=== PATIENT | female | born 1970 | race Two or more races ===

== ENCOUNTER 2024-06-01 20:28 | Inpatient (IN) | payer OTHER ==
[~2024-06-01] VITALS: Ht 160 cm; Wt 61.8 kg
--- NOTE | 2024-06-01 20:42 | ED.PDOC ---
HPI Comments 53-year-old female who came to ER via EMS for chest pains. Patient states she was shopping earlier when she started experiencing chest pains, substernal, sharp, nonradiating, intermittent. Associated with shortness of breath. Denies any history of chest pains. Patient was given aspirin and nitroglycerin chest pains. Patient states she feels better at this time of care. 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 Allergies: Coded Allergies: NO KNOWN ALLERGIES (Unverified , 06/01/24) Information Source: Patient Mode of Arrival: EMS Severity: Moderate Timing: Minutes Duration: Minutes Prehospital treatment: ASA, NTG Location: Substernal Radiation: No Radiation Quality: Sharp Onset: With Light Exertion Cardiac Risk Factors: None PE Risk Factors: None History of: None Associated Signs and Symptoms: SOB Past Medical History PAST MEDICAL HISTORY: Thyroid Surgical History: Appendectomy, [employer] History: Denies all [employer] Hx Family History Family History: Reviewed,noncontributory to illness Social History Smoker: Non-Smoker Alcohol: Denies ETOH Use Drugs: Denies Drug Use Lives In: Home Constitutional: denies: chills, diaphoresis, fatigue, fever, malaise, sweats, weakness, others EENTM: denies: blurred vision, double vision, ear bleeding, ear discharge, ear drainage, ear pain, ear ringing, eye pain, eye redness, hearing loss, mouth pain, mouth swelling, nasal discharge, nose bleeding, nose congestion, nose pain, photophobia, tearing, throat pain, throat swelling, voice changes, others Respiratory: reports: SOB at rest, shortness of breath; denies: cough, hemoptysis, orthopnea, SOB with excertion, stridor, wheezing, others Cardiovascular: reports: chest pain; denies: dizzy spells, diaphoresis, Dyspnea on exertion, edema, irregular heart beat, left arm pain, lightheadedness, palpitations, PND, syncope, others Gastrointestinal: denies: abdomen distended, abdominal pain, blood streaked bowels, constipated, diarrhea, dysphagia, difficulty swallowing, hematemesis, melena, nausea, poor appetite, poor fluid intake, rectal bleeding, rectal pain, vomiting, others Genitourinary: denies: abnormal vagina bleeding, burning, dyspareunia, dysuria, flank pain, frequency, hematuria, incontinence, pain, , vagina discharge, urgency, others Neurological: denies: dizziness, fainting, headache, left sided numbness, left sided weakness, numbness, paresthesia, pre-existing deficit, right sided numbness, right sided weakness, seizure, speech problems, tingling, tremors, weakness, others Musculoskeletal: denies: back pain, gout, joint pain, joint swelling, muscle pain, muscle stiffness, neck pain, others Integumetry: denies: bruises, change in color, change in hair/nails, dryness, laceration, lesions, lumps, rash, wounds, others Allergic/Immunocompromised: denies: Difficulty Healing, Frequent Infections, Hives, Itching, others Hematologic/Lymphatic: denies: anemia, blood clots, easy bleeding, easy bruising, swollen glands, others Endocrine: denies: excessive hunger, excessive sweating, excessive thirst, excessive urination, flushing, intolerance to cold, intolerance to heat, unexplained weight gain, unexplained weight loss, others Psychiatric: denies: anxiety, bipolar disorder, depression, hopeless, panic disorder, schizophrenia, sleepless, suicidal, others Physical Exam General Appearance: No Apparent Distress, Normal HEENT: Normal ENT Inspection, Pharynx Normal, TMs Normal Neck: Full Range of Motion, Non-Tender, Normal, Normal Inspection Respiratory: Chest Non-Tender, Lungs Clear, No Accessory Muscle Use, No Respiratory Distress, Normal Breath Sounds Cardiovascular: No Edema, No JVD, No Murmur, No Gallop, Normal Peripheral Pulses, Regular Rate/Rhythm Breast Exam: Deferred Gastrointestinal: No Organomegaly, Non Tender, No Pulsatile Mass, Normal Bowel Sounds, Soft Genitalia: Deferred Pelvic: Deferred Rectal: Deferred Extremities: No calf tenderness, Normal capillary refill, Normal inspection, Normal range of motion, Non-tender, No pedal edema Musculoskeletal : Apperance: Normal Neurologic: Alert, dryer feeder II-XII nml as Tested, No Motor Deficits, Normal Affect, Normal Mood, No Sensory Deficits Cerebellar Function: Normal Reflexes: Normal Skin: Dry, Normal Color, Warm Lymphatic: No Adenopathy Was a procedure done? Was a procedure done?: No CP Differential Dx Differential Diagnosis: Angina, Anxiety / Panic Attack Differential Diagnosis: Angina, Chest Wall Pain, Costochondritis, Esophageal reflux/spasm, Gastritis, Myocardial Infarction, Pneumonia X-Ray, Labs, Meds, VS Vital Signs Date Time Temp Pulse Resp B/P (MAP) Pulse Ox O2 Delivery O2 Flow Rate FiO2 06/01/24 20:36 98.0 87 16 112/86 (95) 97 06/01/24 20:31 82 Lab Test 06/01/24 21:29 06/01/24 20:42 Range/Units Troponin I High Sensitivity Pending < 3 L </=34 ng/L White Blood Count 7.6 4.4-10.8 10^3/uL Red Blood Count 4.32 4.0-5.20 10^6/uL Hemoglobin 13.4 12.2-16.2 g/dL Hematocrit 39.6 36.0-46.0 % Mean Corpuscular Volume 91.8 80.0-100.0 fL Mean Corpuscular Hemoglobin 31.0 28.0-32.0 pg Mean Corpuscular Hemoglobin Concent 33.7 32.0-36.0 g/dL Red Cell Distribution Width 14.3 11.8-14.3 % Platelet Count 225 140-450 10^3/uL Mean Platelet Volume 9.1 6.9-10.8 fL Neutrophils (%) (Auto) 51.8 37.0-80.0 % Lymphocytes (%) (Auto) 37.6 10.0-50.0 % Monocytes (%) (Auto) 7.1 0.0-12.0 % Eosinophils (%) (Auto) 2.7 0.0-7.0 % Basophils (%) (Auto) 0.8 0.0-2.0 % Neutrophils # (Auto) 3.9 1.6-8.6 10 ^3/uL Lymphocytes # (Auto) 2.8 0.4-5.4 10 ^3/uL Monocytes # (Auto) 0.5 0-1.3 10 ^3/uL Eosinophils # (Auto) 0.2 0-0.8 10 ^3/uL Basophils # (Auto) 0.1 0-0.2 10 ^3/uL Nucleated Red Blood Cells 0.1 % Sodium Level 144 136-145 mmol/L Potassium Level 3.9 3.5-5.1 mmol/L Chloride Level 108 H 98-107 mmol/L Carbon Dioxide Level 25 20-31 mmol/L Anion Gap 11 5-15 Blood Urea Nitrogen 18 9-23 mg/dL Creatinine 0.80 0.550-1.02 mg/dL Glomerular Filtration Rate Calc 89 >90 mL/min BUN/Creatinine Ratio 22.5 H 10.0-20.0 Serum Glucose 116 H 74-106 mg/dL Calcium Level 10.2 8.7-10.4 mg/dL Time of 1ST Reevaluation: 20:39 Reevaluation 1ST: Unchanged Patient Education/Counseling: Diagnosis, Treatment Family Education/Counseling: No Family Present Departure 1 Departure Time of Disposition: 21:59 (Patient presented with chest pain that was concerning for possible STEMI, ACS, PE, Pneumonia, Muscle Strain, COPD, Dissection. Data: 1. I ordered and reviewed the result of at least 3 labs including a CBC, BMP, and Troponin. 2. I independently interpreted the following tests: EKG which shows sinus rhythm and Chest X-ray which shows benign chest.Risk:This patient has a high risk of morbidity due to further diagnostic testing or treatment and may suffer from an acute cardiac or respiratory disorder. Workup reveals concern for ACS and patient should be admitted for further workup and possible expert consultation. ) Impression: Primary Impression: Acute chest pain Disposition: 09 ADMITTED INPATIENT Admit to: Med Surg Condition: Serious Critical Care Note Critical Care Time?: Yes Critical care comment: Acute chest pain Authorized and Performed by: Lottie Mcclelland MD Total critical care time: Approximately 34 minutes Due to a high probability of clinically significant, life threatening deterioration, the patient required my highest level of preparedness to intervene emergently and I personally spent this critical care time directly and personally managing the patient. This critical care time included obtaining a history; examining the patient; pulse oximetry; ordering and review of studies; arranging urgent treatment with development of a management plan; evaluation of patient's response to treatment; frequent reassessment; and, discussions with other providers. This critical care time was performed to assess and manage the high probability of imminent, life-threatening deterioration that could result in multi-organ failure. It was exclusive of separately billable procedures and treating other patients and teaching time. Please see my other sections and the rest of the note for further information on patient assessment and treatment. Stability Stability form required: No Heart Score Heart Score: Heart Score Response (Comments) Value History N/A 0 EKG N/A 0 Age N/A 0 Risk Factors N/A 0 Troponin N/A 0 Total 0 I personally scribed for LOTTIE MCCLELLAND MD ([email or web address]) on 06/01/24 at 20:42. Electronically submitted by Freddie Carroll ([email or web address]). LOTTIE MCCLELLAND MD Jun 01, 2024 20:42
[2024-06-01 21:05] LABS: Basophils # (auto) 0.1 10 ^3/uL (0-0.2); Basophils % (auto) 0.8 % (0.0-2.0); Eosinophils # (auto) 0.2 10 ^3/uL (0-0.8); Eosinophils % (auto) 2.7 % (0.0-7.0); Hematocrit 39.6 % (36.0-46.0); Hemoglobin 13.4 g/dL (12.2-16.2); Lymphocytes # (auto) 2.8 10 ^3/uL (0.4-5.4); Lymphocytes % (auto) 37.6 % (10.0-50.0); Mean Corpuscular Hgb Conc. 33.7 g/dL (32.0-36.0); Mean Corpuscular Volume 91.8 fL (80.0-100.0); Monocytes # (auto) 0.5 10 ^3/uL (0-1.3); Monocytes % (auto) 7.1 % (0.0-12.0); Neutrophils # (auto) 3.9 10 ^3/uL (1.6-8.6); Neutrophils % (auto) 51.8 % (37.0-80.0); Nucleated Red Blood Cells % 0.1 %; Platelet Count (auto) 225 10^3/uL (140-450); Red Blood Cells 4.32 10^6/uL (4.0-5.20); Red Cell Distribution Width 14.3 % (11.8-14.3); White Blood Cell 7.6 10^3/uL (4.4-10.8)
[2024-06-01 21:11] LABS: Chloride 108 mmol/L (98-107); Potassium 3.9 mmol/L (3.5-5.1); Sodium 144 mmol/L (136-145)
[2024-06-01 21:12] LABS: Anion Gap 11 (5-15); Calcium 10.2 mg/dL (8.7-10.4); Carbon Dioxide 25 mmol/L (20-31)
[2024-06-01 21:17] LABS: BUN/Creatinine Ratio 22.5 (10.0-20.0); Blood Urea Nitrogen 18 mg/dL (9-23); Glucose 116 mg/dL (74-106)
--- NOTE | 2024-06-01 21:20 | DVH ---
XY CHEST TWO VIEWS ROUTINE CLINICAL HISTORY: chest pain COMPARISON: None TECHNIQUE: Frontal and lateral view of the chest was obtained FINDINGS: Lines and Tubes: None Lungs: No focal consolidation. Pleura: No effusion. No pneumothorax. Cardiomediastinal contours: Unremarkable Bones: No acute osseous abnormality. IMPRESSION: No acute cardiopulmonary disease.
[2024-06-01 22:14] LABS: Urine Bacteria None Seen /hpf (None Seen)
[2024-06-01] MEDS ORDERED: MORPHINE SULFATE INJ 2 MG/ml SYRG IV PRN ×2 (22:30→23:00)
[2024-06-01] MEDS ORDERED: ACETAMINOPHEN 325 MG TAB PO PRN (22:30)
[2024-06-01] MEDS ORDERED: HYDROcodone-ACET 5/325MG TAB PO PRN (22:30)
[2024-06-01] MEDS ORDERED: DOCUSATE SOD 100 MG CAP PO PRN (22:30)
--- NOTE | 2024-06-01 22:50 | DVHHP2 ---
History of Present Illness Reason for Visit: Acute chest pain History of Present Illness Patient is a 53-year-old female with past medical history of thyroid disease who presented to [facility] ED with complaint of chest pain. Patient reports she was shopping earlier when she started experiencing chest pains, substernal, sharp in nature, intermittent, nonradiating, associated shortness of breaths, SOB at rest, getting worse that prompted this visit. Patient was seen and evaluated in the ED, laboratory data shows WBC 7.6, platelets 225, sodium 144, potassium 3.9, BUN 18, creatinine 0.80, glucose 116, troponin 3, calcium 10.2, blood pressure 112/86, heart rate 72, temperature 98.0 F, O2 saturation 97% on room air. Chest x-ray showed no acute cardiopulmonary disease. Patient was given aspirin and nitroglycerin, please see medication orders section in the computer. On my assessment, patient denies chest pain at this moment, no headache, no dizziness, no diaphoresis, no shortness of breath, no nausea, no vomiting, no fever, no chills. Patient was admitted for further evaluation and medical management. Past Medical History Thyroid disease Past Surgical History Appendectomy, Family History Reviewed, noncontributory to the management of this case. Past Social History The patient lives at home, denies smoking, alcohol or illicit drugs abuse. Review of Systems Constitutional: No: Fever, Chills, Sweats, Weakness, Malaise, Other Eyes: No: Pain, Vision change, Conjunctivae inflammation, Eyelid inflammation, Other, Redness ENT: No: Ear pain, Ear discharge, Nose pain, Nose discharge, Nose congestion, Mouth pain, Mouth swelling, Throat pain, Throat swelling, Other Respiratory: Shortness of breath, Other (SOB at rest); No: Cough, Dry, SOB with excertion, Wheezing, Hemoptysis, Pleuritic Pain, Sputum, Wheezing Cardiovascular: Chest Pain; No: Palpitations, Orthopnea, Paroxysmal Noc. Dyspnea, Edema, Lt Headedness, Other Gastrointestinal: No: Nausea, Vomiting, Abdominal Pain, Diarrhea, Constipation, Melena, Hematochezia, Other Genitourinary: No Dysuria, No Frequency, No Incontinence, No Hematuria, No Retention, No Other Musculoskeletal: No: other, neck pain, shoulder pain, arm pain, back pain, hand pain, leg pain, foot pain Skin: No: Rash, Lesions, Jaundice, Bruising, Other Neurological: No: Weakness, Numbness, Incoordination, Change in speech, C onfusion, Seizures, Other Allergies: Coded Allergies: NO KNOWN ALLERGIES (Unverified , 06/01/24) Medications Current Medications Medications Dose Ordered Sig/Madelaine Route Start Time Stop Time Status Last Admin Dose Admin Sodium Chloride 10 ml Q8HR IV 06/02/24 06:00 Acetaminophen/ Hydrocodone Bitart 1 tab Q4HP PRN PO 06/01/24 22:30 Ondansetron HCl 4 mg Q4HP PRN IV 06/01/24 22:30 Docusate Sodium 100 mg BIDPRN PRN PO 06/01/24 22:30 Acetaminophen 650 mg Q6HP PRN PO 06/01/24 22:30 Morphine Sulfate 2 mg Q4HPRN PRN IV 06/01/24 22:30 Aspirin 81 mg DAILY PO 06/02/24 10:00 Atorvastatin Calcium 10 mg HS PO 06/02/24 22:00 Exam Vital Signs Vital Signs Date Time Temp Pulse Resp B/P (MAP) Pulse Ox O2 Delivery O2 Flow Rate FiO2 06/01/24 21:34 71 06/01/24 20:36 98.0 16 112/86 (95) 97 General Appearance: Alert, Oriented X3, Cooperative, No acute distress HEENT: Atraumatic, PERRLA, EOMI, Mucous membr. moist/pink Respiratory: Clear to auscultation, Normal air movement Cardiovascular: Regular rate, Normal S1, Normal S2, No murmurs Abdominal: Normal bowel sounds, Soft, No tenderness, No hepatospenomegaly, No masses Extremities: No clubbing, No cyanosis, No edema, Normal pulses, No tenderness/swelling Skin: No rashes, No breakdown, No significant lesion Neuro: Normal gait, Normal speech, Strength at 5/5 X4 ext, Normal tone, Sensation intact, Cranial nerves 3-12 NL, Reflexes 2+ Psych/Mental Status: Mental status NL, Mood NL Labs/Xrays Labs Test 06/01/24 21:29 06/01/24 20:42 06/01/24 20:40 Range/Units Troponin I High Sensitivity < 3 L </=34 ng/L White Blood Count 7.6 4.4-10.8 10^3/uL Red Blood Count 4.32 4.0-5.20 10^6/uL Hemoglobin 13.4 12.2-16.2 g/dL Hematocrit 39.6 36.0-46.0 % Mean Corpuscular Volume 91.8 80.0-100.0 fL Mean Corpuscular Hemoglobin 31.0 28.0-32.0 pg Mean Corpuscular Hemoglobin Concent 33.7 32.0-36.0 g/dL Red Cell Distribution Width 14.3 11.8-14.3 % Platelet Count 225 140-450 10^3/uL Mean Platelet Volume 9.1 6.9-10.8 fL Neutrophils (%) (Auto) 51.8 37.0-80.0 % Lymphocytes (%) (Auto) 37.6 10.0-50.0 % Monocytes (%) (Auto) 7.1 0.0-12.0 % Eosinophils (%) (Auto) 2.7 0.0-7.0 % Basophils (%) (Auto) 0.8 0.0-2.0 % Neutrophils # (Auto) 3.9 1.6-8.6 10 ^3/uL Lymphocytes # (Auto) 2.8 0.4-5.4 10 ^3/uL Monocytes # (Auto) 0.5 0-1.3 10 ^3/uL Eosinophils # (Auto) 0.2 0-0.8 10 ^3/uL Basophils # (Auto) 0.1 0-0.2 10 ^3/uL Nucleated Red Blood Cells 0.1 % Sodium Level 144 136-145 mmol/L Potassium Level 3.9 3.5-5.1 mmol/L Chloride Level 108 H 98-107 mmol/L Carbon Dioxide Level 25 20-31 mmol/L Anion Gap 11 5-15 Blood Urea Nitrogen 18 9-23 mg/dL Creatinine 0.80 0.550-1.02 mg/dL Glomerular Filtration Rate Calc 89 >90 mL/min BUN/Creatinine Ratio 22.5 H 10.0-20.0 Serum Glucose 116 H 74-106 mg/dL Calcium Level 10.2 8.7-10.4 mg/dL PATIENT: ELMA BURTON ACCT: [id number] UNIT: [id number] : 1970 LOC: ER ROOM / BED: / AGE / SEX: 53 / F ADM STATUS: REG ER SERVICE 33 ORDERING PHYSICIAN: LOTTIE CASTANON MD PROCEDURE(s): CXR2 - CHEST TWO VIEWS ROUTINE REASON: chest pain ORDER NUMBER(s): [id number], ACCESSION NUMBER(s): [id number] XY CHEST TWO VIEWS ROUTINE CLINICAL HISTORY: chest pain COMPARISON: None TECHNIQUE: Frontal and lateral view of the chest was obtained FINDINGS: Lines and Tubes: None Lungs: No focal consolidation. Pleura: No effusion. No pneumothorax. Cardiomediastinal contours: Unremarkable Bones: No acute osseous abnormality. IMPRESSION: No acute cardiopulmonary disease. Assessment/Plan Assessment/Plan Acute chest pain Plan 1. Admit to telemetry unit 2. Breathing treatment 3. Pain control management 4. Management of fluids and electrolytes 5. Consultation for hospitalist 6. Diagnostic tests-chest x-ray 7. DVT prophylaxis-on aspirin 8. Repeat labs CBC, CMP in a.m. 9. Continue with current medical management 10. Treatment plan discussed with patient and RN. Patient verbalized understanding. Plan discussed with: Patient, Other (RN) My Orders Orders - ALAN DORADO DNP Procedure Category Date Status Time Allergies TONIO 06/01/24 In Process 22:26 Code Status CODE 06/01/24 Transmitted 22:26 Sodium Chloride Lock PHA 06/02/24 In Process (Saline Lock Ns) 06:00 Oxygen Per Hour RT 06/01/24 Transmitted 22:26 Hydrocodone-Acet PHA 06/01/24 In Process 5/325mg Tab ([place] 22:30 Ondansetron Hcl PHA 06/01/24 In Process (Zofran) 22:30 Docusate Sodium PHA 06/01/24 In Process Capsule (Colace 22:30 Complete Blood Count LAB 06/02/24 Verified 04:00 Comprehensive LAB 06/02/24 Verified Metabolic Panel 04:00 Cardiac DIET 06/02/24 Transmitted Diet-2gna,Lofat,Lochol Breakfast Condition: Serious TONIO 06/01/24 In Process 22:26 Acetaminophen Tablet PHA 06/01/24 In Process (Tylenol Tablet) 22:30 Bedrest With Bathroom TONIO 06/01/24 In Process Privileg 22:26 Morphine Sulfate PHA 06/01/24 In Process Injection 22:30 Sequential TONIO 06/01/24 In Process Compression Device Aspirin Tablet PHA 11/2/24 In Process 10:00 Atorvastatin (Lipitor) [facility] 06/02/24 In Process 22:00 Admit ADMIT 06/01/24 Transmitted 22:49 Nitroglycerin [facility] 06/01/24 Transmitted Sublingual (Ntrostat 23:00 Morphine Sulfate [facility] 06/01/24 Transmitted Injection 23:00 Notify Of Changes [facility] 06/01/24 Transmitted From Base 22:49 Rail Transportation Tabeler For [facility] 06/01/24 Transmitted 24 Hours 22:49 Emergency Dysrhythmia [facility] 06/01/24 Transmitted Protocol 22:49 Rhythm Strips Once [facility] 06/01/24 Transmitted Every Shift 22:49 Oxygen By Nasal RT 06/01/24 Transmitted Cannula 22:49 Problem List: (1) Acute chest pain Date of Service: Jun 01, 2024 Billing Provider: ALAN DORADO DNP Common Visit Codes: [id number] INP/OBS CARE (HIGH) ALAN DORADO DNP Jun 01, 2024 22:50
[2024-06-01 22:54] LABS: Urine Blood Negative /uL (Negative); Urine Clarity Clear (Clear); Urine Color Yellow (Yellow); Urine Mucus FEW (None Seen); Urine Protein, UAD TRACE (Negative); Urine Specific Gravity 1.025 (1.001-1.035); Urine Urobilinogen Normal (Negative); Urine WBC 2 /hpf (0 - 5)
[2024-06-01] MEDS ORDERED: NITROGLYCERIN 0.4 MG SL TAB SL PRN (23:00)
[2024-06-01] MEDS: ONDANSETRON HCL 4 MG/2 ML VIAL IV PRN (23:03)
[2024-06-02] VITALS (8 sets, daily range): BP systolic 104–121; BP diastolic 55–70; PULSE 62–78; RESP 14–20; TEMP 97.6–98.6; O2SAT 93–100
--- NOTE | 2024-06-02 01:34 | ECG ---
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
[2024-06-02] MEDS ORDERED: QUET200T4 PO (02:05)
[2024-06-02] MEDS ORDERED: SERT100T PO (02:06)
[2024-06-02] MEDS ORDERED: ATOR1POW PO (03:20)
[2024-06-02] MEDS ORDERED: ATOR10TA52 PO (03:24)
[2024-06-02] MEDS ORDERED: LEVO88TA4 PO (03:25)
[2024-06-02] MEDS: SODIUM CHLOR 0.9% PF (SALINE LOCK) 10ML VIAL/SYR IV SCH (04:43)
[2024-06-02 05:38] LABS: Basophils # (auto) 0.1 10 ^3/uL (0-0.2); Basophils % (auto) 1.2 % (0.0-2.0); Eosinophils # (auto) 0.3 10 ^3/uL (0-0.8); Eosinophils % (auto) 3.9 % (0.0-7.0); Hematocrit 41.3 % (36.0-46.0); Hemoglobin 13.8 g/dL (12.2-16.2); Lymphocytes # (auto) 1.9 10 ^3/uL (0.4-5.4); Lymphocytes % (auto) 22.4 % (10.0-50.0); Mean Corpuscular Hemoglobin 31.5 pg (28.0-32.0); Mean Corpuscular Hgb Conc. 33.5 g/dL (32.0-36.0); Monocytes # (auto) 0.6 10 ^3/uL (0-1.3); Monocytes % (auto) 6.8 % (0.0-12.0); Neutrophils # (auto) 5.6 10 ^3/uL (1.6-8.6); Neutrophils % (auto) 65.7 % (37.0-80.0); Nucleated Red Blood Cells % 0.6 %; Platelet Count (auto) 245 10^3/uL (140-450); Red Blood Cells 4.39 10^6/uL (4.0-5.20); Red Cell Distribution Width 14.5 % (11.8-14.3); White Blood Cell 8.5 10^3/uL (4.4-10.8)
--- NOTE | 2024-06-02 07:09 | ECG ---
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
[2024-06-02 08:22] LABS: Alanine Aminotransferase 12 U/L (7-40); Albumin 4.3 g/dL (3.2-4.8); Alkaline Phosphatase 80 U/L (46-116); Anion Gap 7 (5-15); Aspartate Aminotransferase 11 U/L (13-40); Bilirubin, Total 0.4 mg/dL (0.2-1.0); Blood Urea Nitrogen 15 mg/dL (9-23); Calcium 9.6 mg/dL (8.7-10.4); Carbon Dioxide 26 mmol/L (20-31); Chloride 109 mmol/L (98-107); Glucose 102 mg/dL (74-106); Sodium 142 mmol/L (136-145)
[2024-06-02 08:23] LABS: Total Protein 6.9 g/dL (5.7-8.2)
[2024-06-02] MEDS: ASPirin 81 mg TAB PO SCH (10:07)
--- NOTE | 2024-06-02 12:01 | DVHPN2 ---
Reviewed: Care Plan, H&P, Labs Changes from previous H/P or p: No Changes General: Per HPI Eyes: No Pain, No Vision change, No Conjunctivae inflammation, No Eyelid inflammation, No Other, No Redness ENT: No Ear pain, No Ear discharge, No Nose pain, No Nose discharge, No Nose congestion, No Mouth pain, No Mouth swelling, No Throat pain, No Throat swelling, No Other Cardiovascular: Chest Pain; No Palpitations, No Orthopnea, No Paroxysmal Noc. Dyspnea, No Edema, No Lt Headedness, No Other Respiratory: No Cough, No Dry; Shortness of breath; No SOB with excertion, No Wheezing, No Hemoptysis, No Pleuritic Pain, No Sputum; Other (SOB at rest) Gastrointestinal: No Nausea, No Vomiting, No Abdominal Pain, No Diarrhea, No Constipation, No Melena, No Hematochezia, No Other Genitourinary: No Dysuria, No Frequency, No Incontinence, No Hematuria, No Retention, No Other Musculoskeletal: No other, No neck pain, No shoulder pain, No arm pain, No back pain, No hand pain, No leg pain, No foot pain Skin: No Rash, No Lesions, No Jaundice, No Bruising, No Other Objective Vitals Vital Signs Date Time Temp Pulse Resp B/P (MAP) Pulse Ox O2 Delivery O2 Flow Rate FiO2 06/02/24 08:30 98.3 71 17 115/59 (77) 99 98.3 06/02/24 08:00 Room Air* 0 21 Medications Current Medications Medications Dose Ordered Sig/Madelaine Route Start Time Stop Time Status Last Admin Dose Admin Sodium Chloride 10 ml Q8HR IV 06/02/24 06:00 06/02/24 04:43 10 ML Acetaminophen/ Hydrocodone Bitart 1 tab Q4HP PRN PO 06/01/24 22:30 Ondansetron HCl 4 mg Q4HP PRN IV 06/01/24 22:30 06/01/24 23:03 4 MG Docusate Sodium 100 mg BIDPRN PRN PO 06/01/24 22:30 Acetaminophen 650 mg Q6HP PRN PO 06/01/24 22:30 Morphine Sulfate 2 mg Q4HPRN PRN IV 06/01/24 22:30 Aspirin 81 mg DAILY PO 06/02/24 10:00 06/02/24 10:07 81 MG Atorvastatin Calcium 10 mg HS PO 06/02/24 22:00 Nitroglycerin 0.4 mg Q5MINP PRN SL 06/01/24 23:00 Morphine Sulfate 2 mg Q30M PRN IV 06/01/24 23:00 Laboratory Results Laboratory Tests 06/02/24 05:19 06/02/24 07:47 Chemistry Test 06/01/24 20:42 06/02/24 07:47 Calcium Level 10.2 mg/dL (8.7-10.4) 9.6 mg/dL (8.7-10.4) Albumin 4.3 g/dL (3.2-4.8) Total Protein 6.9 g/dL (5.7-8.2) LFT Test 06/02/24 07:47 Alanine Aminotransferase (ALT) 12 U/L (7-40) Alkaline Phosphatase 80 U/L (46-116) Aspartate Amino Transferase (AST) 11 U/L (13-40) L Total Bilirubin 0.4 mg/dL (0.2-1.0) HgA1c, TSH Test 06/02/24 07:47 Thyroid Stimulating Hormone (TSH) 5.37 uIU/mL (0.55-4.78) H Urinalysis Test 06/01/24 20:40 Urine Color Yellow (Yellow) Urine Clarity Clear (Clear) Urine pH 7.0 (5.0-9.0) Urine Specific [place] 1.025 (1.001-1.035) Urine Protein Trace (Negative) H Urine Ketones Negative (Negative) Urine Blood Negative /uL (Negative) Urine Nitrite Negative (Negative) Urine Bilirubin Negative (Negative) Urine Urobilinogen Normal mg/dL (Negative) Urine Leukocyte Esterase Negative /uL (Negative) Urine RBC 6 /hpf (0 - 4) Urine WBC 2 /hpf (0 - 5) Urine Squamous Epithelial Cells Few /hpf (<5) Urine Bacteria None seen /hpf (None Seen) Urine Mucus Few (None Seen) Urine Glucose Normal mg/dL (Normal) Assessment/Plan Assessment/Plan Patient is a 53-year-old female with past medical history of thyroid disease who presented to [facility] ED with complaint of chest pain. Patient reports she was shopping earlier when she started experiencing chest pains, substernal, sharp in nature, intermittent, nonradiating, associated shortness of breaths, SOB at rest, getting worse that prompted this visit. Patient was seen and evaluated in the ED, laboratory data shows WBC 7.6, platelets 225, sodium 144, potassium 3.9, BUN 18, creatinine 0.80, glucose 116, troponin 3, calcium 10.2, blood pressure 112/86, heart rate 72, temperature 98.0 F, O2 saturation 97% on room air. Chest x-ray showed no acute cardiopulmonary disease. Patient was given aspirin and nitroglycerin, please see medication orders section in the computer. On my assessment, patient denies chest pain at this moment, no headache, no dizziness, no diaphoresis, no shortness of breath, no nausea, no vomiting, no fever, no chills. Patient was admitted for further evaluation and medical management. Acute chest pain, ruling out ACS hx of thyroid disease awaiting for cardiology to full evaluate pt for acute coronary syndrome. Echo obtained Plan discussed with: Patient My Orders Orders - BLANCA ATKINS DO Procedure Category Date Status Time Echo 2d Mode Cardiac US 06/02/24 Verified DOP 12:00 Date of Service: Jun 02, 2024 Billing Provider: BLANCA ATKINS DO Common Visit Codes: [id number] INP/OBS CARE(HIGH) BLANCA ATKINS DO Jun 02, 2024 12:01
[2024-06-02] MEDS ORDERED: ATORVASTATIN 20 MG TAB PO SCH (22:00)
[2024-06-02] MEDS: ATORVASTATIN 20 MG TAB PO SCH (22:09)
[2024-06-02] MEDS: QUEtiapine FUMARATE 100 MG TAB PO SCH (22:10)
[2024-06-03] VITALS (7 sets, daily range): BP systolic 98–105; BP diastolic 48–57; PULSE 65–78; RESP 16–18; TEMP 97.3–98.3; O2SAT 95–100
[2024-06-03] MEDS: SERTRALINE HCL 50 MG TAB PO SCH (09:06)
--- NOTE | 2024-06-03 14:52 | DVHDS2 ---
Discharge Summary Date of Admission Jun 01, 2024 at 22:49 Date of Discharge: Jun 03, 2024 Labs/Diagnostic Data: Laboratory Results Test 06/02/24 07:47 06/02/24 05:19 06/01/24 23:38 06/01/24 20:40 Sodium Level 142 mmol/L (136-145) Potassium Level 4.0 mmol/L (3.5-5.1) Chloride Level 109 mmol/L (98-107) Carbon Dioxide Level 26 mmol/L (20-31) Anion Gap 7 (5-15) Blood Urea Nitrogen 15 mg/dL (9-23) Creatinine 0.94 mg/dL (0.550-1.02) Glomerular Filtration Rate Calc 73 mL/min (>90) BUN/Creatinine Ratio 16.0 (10.0-20.0) Serum Glucose 102 mg/dL (74-106) Calcium Level 9.6 mg/dL (8.7-10.4) Total Bilirubin 0.4 mg/dL (0.2-1.0) Aspartate Amino Transferase (AST) 11 U/L (13-40) Alanine Aminotransferase (ALT) 12 U/L (7-40) Alkaline Phosphatase 80 U/L (46-116) Total Protein 6.9 g/dL (5.7-8.2) Albumin 4.3 g/dL (3.2-4.8) Thyroid Stimulating Hormone (TSH) 5.37 uIU/mL (0.55-4.78) White Blood Count 8.5 10^3/uL (4.4-10.8) Red Blood Count 4.39 10^6/uL (4.0-5.20) Hemoglobin 13.8 g/dL (12.2-16.2) Hematocrit 41.3 % (36.0-46.0) Mean Corpuscular Volume 94.0 fL (80.0-100.0) Mean Corpuscular Hemoglobin 31.5 pg (28.0-32.0) Mean Corpuscular Hemoglobin Concent 33.5 g/dL (32.0-36.0) Red Cell Distribution Width 14.5 % (11.8-14.3) Platelet Count 245 10^3/uL (140-450) Mean Platelet Volume 8.9 fL (6.9-10.8) Neutrophils (%) (Auto) 65.7 % (37.0-80.0) Lymphocytes (%) (Auto) 22.4 % (10.0-50.0) Monocytes (%) (Auto) 6.8 % (0.0-12.0) Eosinophils (%) (Auto) 3.9 % (0.0-7.0) Basophils (%) (Auto) 1.2 % (0.0-2.0) Neutrophils # (Auto) 5.6 10 ^3/uL (1.6-8.6) Lymphocytes # (Auto) 1.9 10 ^3/uL (0.4-5.4) Monocytes # (Auto) 0.6 10 ^3/uL (0-1.3) Eosinophils # (Auto) 0.3 10 ^3/uL (0-0.8) Basophils # (Auto) 0.1 10 ^3/uL (0-0.2) Nucleated Red Blood Cells 0.6 % Troponin I High Sensitivity < 3 ng/L (</=34) Urine Color Yellow (Yellow) Urine Clarity Clear (Clear) Urine pH 7.0 (5.0-9.0) Urine Specific [place] 1.025 (1.001-1.035) Urine Protein Trace (Negative) Urine Ketones Negative (Negative) Urine Blood Negative /uL (Negative) Urine Nitrite Negative (Negative) Urine Bilirubin Negative (Negative) Urine Urobilinogen Normal mg/dL (Negative) Urine Leukocyte Esterase Negative /uL (Negative) Urine RBC 6 /hpf (0 - 4) Urine WBC 2 /hpf (0 - 5) Urine Squamous Epithelial Cells Few /hpf (<5) Urine Bacteria None seen /hpf (None Seen) Urine Mucus Few (None Seen) Urine Glucose Normal mg/dL (Normal) Other Laboratory Tests 06/02/24 07:47 06/02/24 05:19 Brief Hx & Hospital Course: Patient is a 53-year-old female with past medical history of thyroid disease who presented to [facility] ED with complaint of chest pain. Patient reports she was shopping earlier when she started experiencing chest pains, substernal, sharp in nature, intermittent, nonradiating, associated shortness of breaths, SOB at rest, getting worse that prompted this visit. Patient was seen and evaluated in the ED, laboratory data shows WBC 7.6, platelets 225, sodium 144, potassium 3.9, BUN 18, creatinine 0.80, glucose 116, troponin 3, calcium 10.2, blood pressure 112/86, heart rate 72, temperature 98.0 F, O2 saturation 97% on room air. Chest x-ray showed no acute cardiopulmonary disease. Patient was given aspirin and nitroglycerin, please see medication orders section in the computer. On my assessment, patient denies chest pain at this moment, no headache, no dizziness, no diaphoresis, no shortness of breath, no nausea, no vomiting, no fever, no chills. Patient was admitted for further evaluation and medical management. Acute chest pain, ruling out ACS hx of thyroid disease 06/02/2024 awaiting for cardiology to full evaluate pt for acute coronary syndrome. Echo obtained 06/03/2024: discharged to home. echo is normal Condition at Discharge: Stable Final Diagnosis/Problems List see above Discharge Disposition: Home Discharge Instruct/Medications Diet: Cardiac 2g Na,low cholest Activity: No Restrictions, As Tolerated Discharge Statement: "Patient was advised to return to the ER or call 911 if any headaches, dizziness, shortness of breath, chest pain, abdominal pain, bleeding, fevers, or worsening of medical condition. Patient was counseled about treatment plan, medications, possible side effects, patientverbalized understanding. All questions were answered to the best of my ability. This discharge took greater then 30 minutes in planning, reviewing documentation, counseling the patient, and discussing with other team members." ASSESSMENT ASSESSMENT Assessment Date of Service: Jun 03, 2024 Billing Provider: BLANCA ATKINS DO Common Visit Codes: 56857-NYF/OBS DISCH DAY >30min BLANCA ATKINS DO Jun 03, 2024 14:52
--- NOTE | 2024-06-04 08:48 | DVHSR ---
APPROVED REPORT EXAM: Two-dimensional and M-mode echocardiogram with Doppler and color Doppler. Blood Pressure: 104/55 mmHg INDICATION Chest Pain RISK FACTORS Height: 63, Weight: 158 DIMENSIONS LVDd3.7 (3.8-5.7cm)LA (2D)3.3 (1.9-4.0cm)Aortic Root3.2 (2.0-3.7cm) LVDs2.5 (2.5-4.0cm)LA (MM) (1.9-4.0cm)Aortic Cusp Exc1.4 (1.5-2.0cm) EF (%) 60.0 (55-70%)Rt. Atrium2.9 (1.9-4.0cm)Asc. Aorta cm IVSd0.8 (0.7-1.1cm)RV (D) (1.8-2.4cm) PWd1.0 (0.7-1.1cm) Mitral Valve MitralMitral Stenosis E wave0.84m/sMV Mean GR.mmHg A wave0.76m/sMV Peak GR.mmHg E/A ratio1.12D MVAcm2 DECEL [id number] 1/2 [place] Aortic Valve Aortic ValveAortic Stenosis V11.00m/Heather Mean GR.3mmHg V21.19m/Heather Peak GR.6mmHg LVOT Diameter1.6 (1.8-2.4cm)Doppler AVA1.69cm2 Pulmonic Valve V20.86m/s Tricuspid Valve TR Velocity2.03m/s [id number] Conclusion lvef 65% by visual estimate normal rv function left atrium enlarged mild no severe valve abnormalities noed
== END 2024-06-03 16:50 | disposition home or self-care (01) | DRG 206 ==
LOC: ER 20:28 → EDBD 20:28 → TELE 22:49 → TELE-WESTW 06-02 02:22
PROVIDERS: ADMIT Internal Medicine; ATTEND Internal Medicine
DX: M94.0 Chondrocostal junction syndrome [Tietze] (principal); Z90.49 Acquired absence of other specified parts of digestive tract
CPT/HCPCS: 36415; 71046; 80048; 80053; 81001; 84443; 84484; 85025; 93005; 93306; 99291; G0378; J2405